=== PATIENT | female | born 1950 | race Caucasian/White ===

== ENCOUNTER 2020-01-18 08:09 | Day surgery (SDC) | payer OTHER, MEDICARE ==
[~2020-01-18] VITALS: Ht 154.9 cm; Wt 71.8 kg
[~2020-01-18 08:09] MED LIST: TOPROL XL25 MG PO
[2020-01-18] MEDS ORDERED: VALSARTAN80 MG PO (08:28)
--- NOTE | 2020-01-18 09:04 | NUR ---
PT USED CALL LIGHT TO STATE SHE IS GETTING COLD. PT PROVIDED TWO WARM BLANKETS. NO FURTHER REQUESTS AT THIS TIME.
--- NOTE | 2020-01-18 09:48 | NUR ---
PT USED CALL LIGHT TO EXPRESS NEED TO USE THE RESTROOM. PT AMBULATES INDEPENDENTLY AND VOIDS WITHOUT COMPLICATIONS. PT RETURNED TO LOCKED AND LOWERED BED, FLUIDS RESTARTED.
--- NOTE | 2020-01-18 10:40 | NUR ---
01/18/20 1040 Katrin Alvarez 1036 PATIENT ARRIVES TO PACU RESTING WITH EYES CLOSED. OPENS EYES WITH VERBAL STIMULATED. ORIENTED PATIENT TO PACU. PATIENT BACK SLEEP WITHOUT STIMULATION. RESP EVEN AND UNLABORED, NC AT 2 LITERS.
--- NOTE | 2020-01-18 17:50 | OR ---
[facility] [address] [place], [place] [address] Signed DATE OF OPERATION: 01/18/2020 SURGEON: Chelsey Story MD PREOPERATIVE DIAGNOSES: 1. Gastroesophageal reflux disease. 2. History of Helicobacter pylori at age 67. 3. Cholecystectomy with fundoplication in 2001. 4. Personal history of colonic polyps in her mid 50s and age 67. 5. Ileocecectomy for volvulus in March 2019. 6. 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 7. Hemorrhoids. POSTOPERATIVE DIAGNOSES: 1. Moderate hemorrhagic gastritis. 2. Question of fundoplication. 3. Ileocolonic anastomosis at 105 cm (right colon). 4. Minimal sigmoid diverticulosis. 5. Hwwykik-ul-iwfgccxd internal and external hemorrhoids. PROCEDURES: 1. EGD with CLOtest and biopsies of the pyloric bulb, antrum, and fundus. 2. Colonoscopy without biopsy. ESTIMATED BLOOD LOSS: None. INDICATIONS: Brad is a 69-year-old female, who is a retired school social worker. She traveled overseas into [place], [place], and [place]. While in [place], she speaks of fundoplication with cholecystectomy in 2001. She still having acid reflux symptoms. She also talked about being H pylori positive at age 67, for which she was treated. She also reviewed the fact that she had colonic polyps removed in her mid 50s as well as age 67. Then, in March of this year, she needed surgery for an ileocecectomy for a volvulus. Incidentally, there was a 2 mm carcinoid tumor at the tip of the appendix, which is now adequately treated. She also recalls having hemorrhoids. She has been asked to see me with respect to the above to repeat the upper and lower endoscopy. She has an excellent memory, but unfortunately most of her [place] are [place]. In the office, I gave her pamphlets on both upper and lower endoscopy. We had reviewed those in detail. She understands the nature of the two tests along with the risks including, Electronically Signed By: CHELSEY STORY MD 01/18/20 1750 PATIENT NAME: BRAD CHAVEZ OPERATIVE REPORT DATE OF : 54 REPORT #: [id number] PHYSICIAN: CHELSEY STORY MD PCP: ROS JOHNSON MD REPORT IS CONFIDENTIAL AND NOT TO BE RELEASED WITHOUT AUTHORIZATION [facility] [address] [place] [address] Signed but not limited to gas bloating, crampy abdominal pain, bleeding, perforation requiring surgery, and missed diagnosis. She also understands the need for IV conscious sedation. She had expressed understanding and wished to proceed. DESCRIPTION OF PROCEDURE: Brad was taken into our endoscopy suite and placed in the supine semi-recumbent position. The posterior oropharynx was anesthetized with lidocaine spray. A bite block was utilized for the case. A total of 8 mg of Versed and 150 mcg of fentanyl were given to cover both upper and lower endoscopy. The adult gastroscope had been introduced and advanced under direct visualization out into the third portion of the duodenum without difficulty. The duodenum was unremarkable. She had very mild erythema in the pyloric bulb, but no ulcerations. We therefore took a biopsy of the pyloric bulb. Stomach, however, showed [id number] diffuse hemorrhagic gastritis. We took a biopsy of the antrum for CLOtest as well as pathologic review. Upon retroflexion of scope, we cannot definitively say that she has had a fundoplication. It is possible, but normally we see more rotation of the stomach after a fundoplication. After this, the scope was withdrawn up through the area of the GE junction, which seems to be compliant without stricture. Very minimal disruption to the Z-line. No Reynolds's mucosa. Distal, middle, and upper esophagus were unremarkable. We went ahead and took a biopsy in the fundus of the stomach because there was a hemorrhagic lesion there as well. After this, the gas was suctioned out and the gastroscope removed. Brad tolerated her upper endoscopy quite well. PROCEDURE NOTE: Brad was rotated into the left lateral decubitus position. She was maintained on IV sedation with the Versed and fentanyl. A digital rectal exam was performed and she does have circumferential minimal external hemorrhoids. She has good sphincter tone. The adult colonoscope was introduced and advanced under direct visualization of camera up to the ileocecal anastomosis in the proximal right colon. It measured out 105 cm from the anal verge. There were a couple of carla visible, but no ulcerations, no granulation tissue, etc. The anastomosis was well healed. Her prep was quite excellent. We slowly withdrew the scope. We taken several pictures throughout for photodocumentation. We found diverticula in the sigmoid colon, they were [id number]-pd-[id number] in size, minimal in number and scattered about. The rectum itself was unremarkable. Upon retroflexion of the scope, she does have minimal internal hemorrhoid columns. After this, the gas was suctioned out and the colonoscope removed. Brad tolerated the procedure quite well. RECOMMENDATIONS: I will see Brad back in my office in 7 to 14 days to review her results. If she has ongoing acid reflux symptoms, she should consider a simple barium swallow to assess for the fundoplication any reflux during the test. Electronically Signed By: CHELSEY STORY MD 01/18/20 2826 PATIENT NAME: BRAD CHAVEZ OPERATIVE REPORT DATE OF : 54 REPORT #: [id number] PHYSICIAN: CHELSEY STORY MD PCP: ROS JOHNSON MD REPORT IS CONFIDENTIAL AND NOT TO BE RELEASED WITHOUT AUTHORIZATION [address] [address] Signed Chelsey Story MD ALB/MODL /[id number] cc: MD Chelsey Nguyen MD Copies: ROS JOHNSON DMD, ANDREW L MD ~ Electronically Signed By: CHELSEY STORY MD 01/18/20 1750 PATIENT NAME: BRAD CHAVEZ OPERATIVE REPORT DATE OF : 54 REPORT #: [id number] PHYSICIAN: CHELSEY STORY MD PCP: ROS JOHNSON MD REPORT IS CONFIDENTIAL AND NOT TO BE RELEASED WITHOUT AUTHORIZATION
--- NOTE | 2020-01-19 11:12 | PATH ---
[facility] [address] [place], [place] [address] Signed SPECIMEN(S): A DUODENUM BULB SPECIMEN(S): B ANTRUM SPECIMEN(S): C FUNDUS SPECIMEN SOURCE: A. DUODENUM BULB B. ANTRUM C. FUNDUS CLINICAL HISTORY: Esophagogastroduodenoscopy/colonoscopy. Reflux, history of polyps, history of ileocecectomy, carcinoid tumor. Postop: Gastritis, small external hemorrhoids, internal hemorrhoids, diverticulosis. MICROSCOPIC DESCRIPTION: Histologic sections of all submitted blocks are examined by light microscopy. These findings, together with the gross examination, support the pathologic diagnosis. FINAL PATHOLOGIC DIAGNOSIS: A. Duodenum, bulb, biopsy: - Duodenal mucosa with Sanjuanita's gland hyperplasia and mucosal capillary congestion. - Negative for increased intraepithelial lymphocytes. - Negative for dysplasia or malignancy. B. Stomach, antrum, biopsy: - Antral mucosa with focal minimal reactive gastropathy. - Negative for Helicobacter organisms on HE stain. - Negative for dysplasia or malignancy. C. Stomach, fundus, biopsy: - Oxyntic mucosa with no histopathologic abnormality. - Negative for Helicobacter organisms on HE stain. - Negative for dysplasia or malignancy. NAL:cml:C2NR GROSS DESCRIPTION: Three specimens are received in three containers, labeled "EL." A. The specimen, labeled "EL, 1," and designated on the requisition "duodenal bulb," is received in formalin and consists of one whitten soft tissue fragment that measures 0.3 cm in greatest dimension. The specimen is entirely submitted in cassette (A1). B. The specimen, labeled "EL, 2," and designated on the requisition PATIENT NAME: VAISHALI CHAVEZ PATHOLOGY DATE OF : 54 REPORT #: [id number] PHYSICIAN: VENICE PATHOLOGY PCP: ROS JOHNSON MD REPORT IS CONFIDENTIAL AND NOT TO BE RELEASED WITHOUT AUTHORIZATION [facility] [address] [place] [id number] Signed "antrum/pylorus," is received in formalin and consists of one whitten soft tissue fragment that measures 0.4 cm in greatest dimension. The specimen is entirely submitted in cassette (B1). C. The specimen, labeled "EL, 3," and designated on the requisition "fundus," is received in formalin and consists of one whitten soft tissue fragment that measures 0.3 cm in greatest dimension. The specimen is entirely submitted in cassette (C1). AT (under the direct supervision of a pathologist) The Gross Description was prepared using a voice recognition system. The report was reviewed for accuracy; however, sound-alike word errors, addition and/or deletions may occur. If there is any question about this report, please contact Client Services. PERFORMING LABORATORY: The technical component was performed by [facility], [address] [place] [id number] (Sty[employer] Dehydration Reactor Operator: Belkys Moreno MD; CLIA# [id number]). [facility], [address] [place] [id number] (CLIA# [id number]). Diagnostician: Lashay Goldman MD Pathologist Electronically Signed 01/19/2020 Copies: ~ PATIENT NAME: VAISHALI CHAVEZ PATHOLOGY DATE OF : 54 REPORT #: [id number] PHYSICIAN: [facility] PATHOLOGY PCP: ROS JOHNSON MD REPORT IS CONFIDENTIAL AND NOT TO BE RELEASED WITHOUT AUTHORIZATION
== END 2020-01-18 11:05 | disposition home or self-care (01) ==
LOC: OPS 08:09 → DS 08:09 → OPS 09:45 → DS 09:45 → OPS 11:05
PROVIDERS: ATTEND Colon & Rectal Surgery
PROC: 0DB68ZX Excision of Stomach, Via Natural or Artificial Opening Endoscopic, Diagnostic (ICD-10-PCS; 2020-01-18)
PROC: 0DJD8ZZ Inspection of Lower Intestinal Tract, Via Natural or Artificial Opening Endoscopic (ICD-10-PCS; 2020-01-18)
PROC: 0DB98ZX Excision of Duodenum, Via Natural or Artificial Opening Endoscopic, Diagnostic (ICD-10-PCS; principal; 2020-01-18 09:45)
PROC: 0DB78ZX Excision of Stomach, Pylorus, Via Natural or Artificial Opening Endoscopic, Diagnostic (ICD-10-PCS; 2020-01-18 09:45)
DX: K29.71 Gastritis, unspecified, with bleeding (principal); K31.9 Disease of stomach and duodenum, unspecified; K31.89 Other diseases of stomach and duodenum; K57.30 Diverticulosis of large intestine without perforation or abscess without bleeding; K64.8 Other hemorrhoids; K64.4 Residual hemorrhoidal skin tags; I10 Essential (primary) hypertension; K21.9 Gastro-esophageal reflux disease without esophagitis; Z86.010 Personal history of colon polyps; Z85.030 Personal history of malignant carcinoid tumor of large intestine; Z98.890 Other specified postprocedural states; Z90.49 Acquired absence of other specified parts of digestive tract; Z98.0 Intestinal bypass and anastomosis status; Z79.899 Other long term (current) drug therapy; Z88.2 Allergy status to sulfonamides
CPT/HCPCS: 86677; 99153; G0500; J2250; J3010; J7121

== ENCOUNTER 2021-05-03 10:16 | Emergency (ER) | payer MEDICARE, OTHER ==
[~2021-05-03] VITALS: Ht 154.9 cm; Wt 64.4 kg
[~2021-05-03 10:16] MED LIST changes: +VALSARTAN80 MG PO
--- NOTE | 2021-05-04 14:54 | EKG ---
[facility] [address] [facility] [place], [place] [address] Signed Normal sinus rhythm Anterior infarct , age undetermined Abnormal ECG No previous ECGs available Confirmed by KASIE BRUMFIELD MD ([id number]) on 05/04/2021 2:54:11 PM Electronically Signed By: KASIE BRUMFIELD MD 05/04/21 1454 PATIENT NAME: VAISHALI CHAVEZ Electrocardiogram DATE OF : 54 PHYSICIAN: KASIE BRUMFIELD MD REPORT #: [id number] REPORT IS CONFIDENTIAL AND NOT TO BE RELEASED WITHOUT AUTHORIZATION
== END 2021-05-03 12:22 | disposition home or self-care (01) ==
LOC: ED 10:16
DX: R00.2 Palpitations (principal); I10 Essential (primary) hypertension; K21.9 Gastro-esophageal reflux disease without esophagitis; Z88.2 Allergy status to sulfonamides; Z91.048 Other nonmedicinal substance allergy status; Z79.899 Other long term (current) drug therapy
CPT/HCPCS: 93005; 93010; 99284-25

== ENCOUNTER 2021-06-10 20:34 | Emergency (ER) | payer MEDICARE, OTHER ==
[~2021-06-10] VITALS: Ht 154.9 cm; Wt 64.4 kg
[2021-06-10] MEDS ORDERED: ALPRAZOLAM0.25 MG PO (21:13)
[2021-06-10] MEDS ORDERED: VITAMIN D31250 MCG PO (21:13)
== END 2021-06-10 23:17 | disposition home or self-care (01) ==
LOC: ED 20:34
DX: H57.89 Other specified disorders of eye and adnexa (principal); I10 Essential (primary) hypertension; K21.9 Gastro-esophageal reflux disease without esophagitis; Z91.048 Other nonmedicinal substance allergy status; Z88.2 Allergy status to sulfonamides; Z79.899 Other long term (current) drug therapy
CPT/HCPCS: 36415; 70496; 80048; 85025; 99284-25; Q9967

== ENCOUNTER 2021-08-26 06:54 | Emergency (ER) | payer MEDICARE, OTHER ==
[~2021-08-26] VITALS: Ht 154.9 cm; Wt 65.5 kg
[~2021-08-26 06:54] MED LIST changes: +ALPRAZOLAM0.25 MG PO; +VITAMIN D31250 MCG PO
[2021-08-26] MEDS ORDERED: ALPHA LIPOIC A200 M1 PO (07:08)
== END 2021-08-26 08:56 | disposition home or self-care (01) ==
LOC: ED 06:54
DX: U07.1 COVID-19 (principal); I10 Essential (primary) hypertension; K21.9 Gastro-esophageal reflux disease without esophagitis; Z79.899 Other long term (current) drug therapy; Z88.2 Allergy status to sulfonamides; Z91.09 Other allergy status, other than to drugs and biological substances
CPT/HCPCS: 87502; C9803; U0003

== ENCOUNTER 2024-08-29 17:14 | Emergency (ER) | payer MEDICARE, OTHER ==
[~2024-08-29] VITALS: Ht 167.6 cm; Wt 70.4 kg
[~2024-08-29 17:14] MED LIST changes: +ALPHA LIPOIC A200 M1 PO
[2024-08-29] MEDS ORDERED: DILTIAZEM ER180 MG (18:37)
[2024-08-29] MEDS ORDERED: LATANOPROST2.5 ML OPTH (18:37)
[2024-08-29] MEDS ORDERED: DILT-XR180 MG PO (18:37)
[2024-08-29] MEDS ORDERED: ELIQUIS5 MG (18:37)
[2024-08-29] MEDS ORDERED: OMEPRAZOLE20 MG PO (18:37)
[2024-08-29 19:34] LABS: BASOPHILS 0.6 % (0.1-1.2); EOSINOPHILS 2.4 % (0.7-5.8); LYMPHOCYTES 31.2 % (19.3-51.7); MCH 28.9 PG (25.6-32.2); MCHC 33.3 g/dL (32.2-35.5); MCV 86.8 fL (79.4-94.8); MONOCYTES 6.2 % (4.7-12.5); NEUTROPHILS 59.3 % (34.0-71.1); RBC 4.70 M/uL (3.93-5.22)
[2024-08-29] MEDS ORDERED: LIDOCAINE & ANTACID 35 ML BTL PO ONE (19:45)
[2024-08-29 19:52] LABS: ALT (SGPT) 20.0 U/L (14-59); AST (SGOT) 17.0 U/L (15-37); GLOMERULAR FILTRATION RATE,EST 58.0 mL/min (>60); PROTEIN, TOTAL 7.4 g/dL (6.4-8.2); UREA NITROGEN 17.0 mg/dL (7-18)
[2024-08-29 20:23] VITALS: BP 152/91
--- NOTE | 2024-08-30 09:48 | EKG ---
[facility] [address] [facility] [place] [address] Signed Sinus rhythm with premature atrial complexes Left axis deviation Left bundle branch block Abnormal ECG When compared with ECG of 03-MAY-2021 10:56, premature atrial complexes are now present Left bundle branch block is now present Criteria for Anterior infarct are no longer present Confirmed by Damien Barth MD ([id number]) on 08/30/2024 9:48:12 AM Electronically Signed By: DAMIEN BARTH MD 08/30/24 0948 PATIENT NAME: VAISHALI CHAVEZ Electrocardiogram DATE OF : 54 PHYSICIAN: DAMIEN BARTH MD REPORT #: [id number] REPORT IS CONFIDENTIAL AND NOT TO BE RELEASED WITHOUT AUTHORIZATION
== END 2024-08-29 20:23 | disposition home or self-care (01) ==
LOC: ED 17:14
PROVIDERS: Emergency Medicine
DX: I10 Essential (primary) hypertension (principal); R00.2 Palpitations; Z79.899 Other long term (current) drug therapy; Z91.048 Other nonmedicinal substance allergy status; Z88.2 Allergy status to sulfonamides
CPT/HCPCS: 36415; 80053; 83735; 84484; 85025; 93005; 93010; 99285